=== PATIENT | female | born 1980 | race Caucasian/White ===

== ENCOUNTER 2017-10-06 09:45 | Day surgery (SDC) | payer OTHER ==
[2017-10-06] MEDS ORDERED: LIDOCAINE 2% (SDV) 5 ML INJ (12:52)
[2017-10-06] MEDS ORDERED: PROPOFOL 20 ML (12:52)
[2017-10-06] MEDS ORDERED: SUCCINYLCHOLINE CHLORIDE 100 MG/5 ML SYG IV (12:52)
[2017-10-06] MEDS ORDERED: ROCURONIUM 50 MG INJ (12:52)
[2017-10-06] MEDS ORDERED: NEOSTIGMINE 3 MG/3 ML SYRINGE (12:52)
[2017-10-06] MEDS ORDERED: GLYCOPYRROLATE 0.4 MG INJ ×2 (12:52→13:31)
[2017-10-06] MEDS ORDERED: MIDAZOLAM 1 MG/ML 2 ML INJ IV (13:00)
[2017-10-06] MEDS ORDERED: EPHEDrine SULFATE 50 MG/5 ML SYG IV (13:00)
[2017-10-06] MEDS ORDERED: METOCLOPRAMIDE 10 MG INJ IV (13:00)
[2017-10-06] MEDS ORDERED: LABETALOL HCL 20MG INJ IV (13:00)
[2017-10-06] MEDS ORDERED: hydrALAzine 20 MG INJ IV (13:00)
[2017-10-06] MEDS ORDERED: DIPHENHYDRAMINE 50 MG INJ IV (13:00)
[2017-10-06] MEDS ORDERED: HYDROmorphONE 1 MG/5 ML IV SYRINGE IV ×3 (13:00)
[2017-10-06] MEDS ORDERED: FENTAnyl 50 MCG/ML VIAL IV ×3 (13:00)
[2017-10-06] MEDS ORDERED: ONDANSETRON 4 MG INJ IV (13:00)
[2017-10-06] MEDS ORDERED: OXYCODONE/ACETAMINOPHEN (5/325) TAB PO (13:00)
[2017-10-06] MEDS ORDERED: MEPERIDINE 100 MG INJ (13:01)
[2017-10-06 13:15] LABS: ADD MAN DIFF? NO
[2017-10-06 13:16] LABS: BASOPHILS % 0.4 % (0.0-2.0); EOSINOPHILS % 0.6 % (0.0-7.0); HEMATOCRIT 37.1 % (37.0-47.0); HEMOGLOBIN 12.2 g/dl (12.0-16.0); LYMPHOCYTES # 1.2 10^3/ul (0.8-2.9); LYMPHOCYTES % 24.1 % (15.0-51.0); MEAN CORPUSCULAR HEMOGLOBIN 28.2 pg (29.0-33.0); MEAN CORPUSCULAR HGB CONC 32.9 g/dl (32.0-37.0); MEAN CORPUSCULAR VOLUME 85.9 fl (82.0-101.0); MEAN PLATELET VOLUME 10.4 fl (7.4-10.4); MONOCYTE # 0.2 10^3/ul (0.3-0.9); MONOCYTES % 4.8 % (0.0-11.0); NEUTROPHIL # 3.5 10^3/ul (1.6-7.5); NEUTROPHILS % 69.9 % (39.0-77.0); PLATELET COUNT 202 10^3/UL (140-415); RED BLOOD COUNT 4.32 10^6/ul (4.20-5.40); RED CELL DISTRIBUTION WIDTH 12.2 % (11.5-14.5)
[2017-10-06] MEDS ORDERED: METOCLOPRAMIDE 10 MG INJ (13:31)
[2017-10-06] MEDS ORDERED: ONDANSETRON 4 MG INJ (13:31)
[2017-10-06] MEDS ORDERED: CEFAZOLIN 1 GM INJ (13:31)
[2017-10-06] MEDS: MEPERIDINE 25 MG INJ IV (14:49)
[2017-10-06] MEDS: OXYCODONE/ACETAMINOPHEN (5/325) TAB PO (15:32)
== END 2017-10-06 16:24 | disposition home or self-care (01) ==
LOC: SDS 09:45
DX: N80.1 Endometriosis of ovary (principal)
CPT/HCPCS: 58662; 84702; 84703; 85025; 86850; 86900; 86901; 88104; 88305